=== PATIENT | male | born 1975 | race Caucasian/White ===

== ENCOUNTER 2021-10-26 21:22 | Inpatient (IN) | payer OTHER ==
[~2021-10-26] VITALS: Ht 182.9 cm; Wt 126.1 kg
[~2021-10-26 21:22] MED LIST: CRESTOR10 MG PO; ECOTRIN81 MG PO; FLOMAX0.4 MG PO; JANUVIA100 MG PO; LORCET PLUS 7.1 EACH PO; LORTAB 7.5-3251 EACH PO; MYCOSTATIN CREA15 GM TOP; NEURONTIN600 MG PO; OXYBUTYNIN CHLO10 MG PO; PRINIVIL10 MG PO; PROTONIX40 MG PO; TRIHEXYPHENIDYL2 MG PO; ULORIC 40 MG TA40 MG PO; VALIUM 10 MG TA10 MG PO; VENTOLIN HFA 66.7 GM INH; WELLBUTRIN SR150 M1 PO; ZANTAC150 MG PO
[2021-10-26 22:06] LABS: HEMOGLOBIN 14.1 gm/dl (14.0-17.5); RED BLOOD COUNT 4.75 M/UL (4.20-5.50); WHITE BLOOD COUNT 19.8 K/UL (4.5-11.0)
[2021-10-26 22:40] LABS: BUN/CREATININE RATIO 15 (0-10)
[2021-10-27] MEDS ORDERED: GUANFACINE HCL1 MG PO (09:55)
[2021-10-27] MEDS ORDERED: OXCARBAZEPINE600 MG PO (09:56)
[2021-10-27] MEDS ORDERED: QUETIAPINE FUMA25 MG PO (09:56)
[2021-10-27] MEDS ORDERED: PROZAC20 MG PO (09:56)
[2021-10-27] MEDS ORDERED: ATORVASTATIN CA40 MG PO (09:57)
[2021-10-27] MEDS ORDERED: TOUJEO MAX300 UNIT/1 SQ (09:57)
[2021-10-27] MEDS ORDERED: MYRBETRIQ25 MG PO (09:58)
[2021-10-27] MEDS ORDERED: TRULICITY0.75 MG/0. SQ (09:58)
[2021-10-27] MEDS ORDERED: AUSTEDO PO (09:59)
[2021-10-27] MEDS ORDERED: COZAAR50 MG PO (09:59)
[2021-10-27 11:38] LABS: HEMOGLOBIN 12.5 gm/dl (14.0-17.5); RED BLOOD COUNT 4.18 M/UL (4.20-5.50); WHITE BLOOD COUNT 12.1 K/UL (4.5-11.0)
[2021-10-29] MEDS ORDERED: HYDROCODON-ACE1 EAC4 PO (09:48)
[2021-10-29] MEDS ORDERED: IBUPROFEN800 MG PO (09:48)
--- NOTE | 2021-10-29 16:54 | NUR ---
PATIENT TRANSPORTED TO [facility] PER TRANSPORT STAFF. [facility] AWAITING AT MAIN [facility]
== END 2021-10-29 16:47 | disposition home or self-care (01) | DRG 964 ==
LOC: ER1 21:22 → CDU 23:52 → PROG CARE 23:52
PROVIDERS: Family Medicine; ADMIT Surgery
PROC: 0HQ0XZZ Repair Scalp Skin, External Approach (ICD-10-PCS; principal; 2021-10-26)
DX: S27.0XXA Traumatic pneumothorax, initial encounter (principal); S36.039A Unspecified laceration of spleen, initial encounter; S22.43XA Multiple fractures of ribs, bilateral, initial encounter for closed fracture; T79.7XXA Traumatic subcutaneous emphysema, initial encounter; I10 Essential (primary) hypertension; S01.01XA Laceration without foreign body of scalp, initial encounter; Z20.822 Contact with and (suspected) exposure to COVID-19; E11.9 Type 2 diabetes mellitus without complications; J43.9 Emphysema, unspecified; F17.200 Nicotine dependence, unspecified, uncomplicated; Z82.49 Family history of ischemic heart disease and other diseases of the circulatory system; Z83.3 Family history of diabetes mellitus; Z90.49 Acquired absence of other specified parts of digestive tract; Z98.890 Other specified postprocedural states; Z79.899 Other long term (current) drug therapy; Z84.1 Family history of disorders of kidney and ureter; Z87.820 Personal history of traumatic brain injury
CPT/HCPCS: 36415; 70450; 71045; 71260; 72125; 72128; 72131; 80053; 82962; 85025; 85027; 85610; 93005; 96374; 96375; 96376; 99285; G0378; G0480; J1885; J2270; J2405; J3480; Q9967; U0002